=== PATIENT | male | born 1970 | race Caucasian/White ===

== ENCOUNTER 2017-05-28 15:51 | Emergency (ER) | payer OTHER ==
[~2017-05-28] VITALS: Ht 167.6 cm; Wt 73.4 kg
[~2017-05-28 15:51] MED LIST: ACETAMINOPHN-T1 EACH PO; ALBUTEROL SULF8.5 GM IH; AMOX TR-K CLV1 EAC4 PO; BISAC-EVAC10 MG PR; BISACODYL5 MG PO; CHANTIX1 MG PO; CLONAZEPAM1 MG PO; DOCUSATE SODIU100 MG PO; FLEXERIL10 MG PO; KLONOPIN0.5 M1 PO; MAG-AL PLUS SUS30 ML PO; MUCUS RELIEF600 MG PO; PERCOCET 5/31 TABLET PO; PHENERGAN-CODE120 ML PO; PRAVACHOL40 MG PO; PRAVASTATIN SOD40 MG PO; ROBITUSSIN NIG118 ML PO; ROXICODONE5 MG PO; TESSALON PERLE100 MG PO; TRAMADOL HCL50 MG PO; VIAGRA; ZITHROMAX250 MG PO
[2017-05-28 16:46] LABS: BASOPHIL COUNT 0.1 K/uL (0-0.1); EOSINOPHIL (%) 0.6 % (0-5); HEMATOCRIT 43.4 % (38.0-50.0); IMMATURE GRANULOCYTE (%) 0.6 % (0.0-0.7); INSTRUMENT ABS NEUTROPHIL CT 2.8 K/uL; LYMPHOCYTE COUNT 1.9 K/uL (1.0-2.8); MCH 33.8 PG (29.0-34.0); MCHC 35.7 G/DL (30.0-36.0); MCV 94.6 FL (86-99); MEAN PLAT.VOLUME 10.6 uM^3 (9.0-12.4); MONOCYTE (%) 11.4 % (3-12); MONOCYTE COUNT 0.6 K/uL (0-0.8); NEUTROPHIL (%) 50.6 % (45-76); NEUTROPHIL COUNT 2.8 K/uL (1.8-6.4); PLATELET COUNT 124 K/uL (156-360); RBC DIS.WIDTH-CV 12.7 % (11.8-14.6); RBC DIS.WIDTH-SD 44.1 % (39-53); RED BLOOD COUNT 4.59 M/uL (4.00-5.50); WHITE BLOOD COUNT 5.4 K/uL (4.1-10.2)
[2017-05-28 16:56] LABS: CHLORIDE 97 mEq/L (99-109); SODIUM 134 mEq/L (136-147)
[2017-05-28 16:59] LABS: GLUCOSE 80 mg/dL (70-99)
[2017-05-28 17:00] LABS: ANION GAP 18 MEQ/L (2-14); TOTAL BILIRUBIN 1.3 mg/dL (0.0-1.0)
[2017-05-28 17:01] LABS: SERUM ETHYL ALCOHOL 231 mg/dL
[2017-05-28 17:02] LABS: ALKALINE PHOSPHATASE 99 IU/L (3-129); GFR ESTIMATE (CALCULATED) > 59 mL/min/
[2017-05-28 17:03] LABS: UREA NITROGEN (BUN) 5 mg/dL (9-23)
[2017-05-28 17:04] LABS: DIRECT BILIRUBIN 0.7 mg/dL (0.0-0.3)
[2017-05-28 20:04] LABS: AMPHETAMINE NEGATIVE (500 ng/mL); BARBITURATES NEGATIVE (200 ng/mL); BENZODIAZEPINES NEGATIVE (150 ng/mL); COCAINE NEGATIVE (150 ng/mL); INTERNAL CONTROLS VALID? YES; METHADONE NEGATIVE (200 ng/mL); METHAMPHETAMINE NEGATIVE (500 ng/mL); OPIATES (MORPHINE) NEGATIVE (100 ng/mL); OXYCODONE NEGATIVE (100 ng/mL); PHENCYCLIDINE NEGATIVE (25 ng/mL); PROPOXYPHENE NEGATIVE (300 ng/mL); THC CANNABINOIDS NEGATIVE (50 ng/mL); TRICYCLIC ANTIDEPRESSANTS NEGATIVE (300 ng/mL)
[2017-05-28 22:25] VITALS: BP 155/81
== END 2017-05-28 22:55 | disposition home or self-care (01) ==
LOC: EME 15:51
PROVIDERS: Emergency Medicine
DX: F19.94 Other psychoactive substance use, unspecified with psychoactive substance-induced mood disorder (principal); F32.9 Major depressive disorder, single episode, unspecified; I10 Essential (primary) hypertension; E78.5 Hyperlipidemia, unspecified; I25.2 Old myocardial infarction; F17.200 Nicotine dependence, unspecified, uncomplicated
CPT/HCPCS: 80048; 80076; 85025; 90837; 99281; 99285; G0480

== ENCOUNTER 2017-07-14 10:22 | Day surgery (SDC) | payer OTHER ==
[~2017-07-14] VITALS: Ht 170.2 cm; Wt 76.2 kg
[~2017-07-14 10:22] MED LIST changes: +BUSPIRONE HCL5 MG PO; +CHLORDIAZEPOXID25 MG PO; +CITALOPRAM HBR40 MG PO; +GABAPENTIN100 MG PO; +METOPROLOL SUCC25 MG PO
== END 2017-07-14 11:45 | disposition home or self-care (01) ==
LOC: PAIN 10:22 → SDC 11:00 → PAIN 11:45
DX: M47.26 Other spondylosis with radiculopathy, lumbar region (principal); M51.16 Intervertebral disc disorders with radiculopathy, lumbar region; F41.8 Other specified anxiety disorders; I10 Essential (primary) hypertension; I25.10 Atherosclerotic heart disease of native coronary artery without angina pectoris; E78.5 Hyperlipidemia, unspecified; M48.061 Spinal stenosis, lumbar region without neurogenic claudication; Z79.82 Long term (current) use of aspirin; Z79.891 Long term (current) use of opiate analgesic; F17.200 Nicotine dependence, unspecified, uncomplicated; I25.2 Old myocardial infarction
CPT/HCPCS: J1030; J2250; J3010; S0020

== ENCOUNTER 2017-07-21 11:11 | Day surgery (SDC) | payer OTHER ==
[~2017-07-21] VITALS: Ht 170.2 cm; Wt 76.2 kg
== END 2017-07-21 12:28 | disposition home or self-care (01) ==
LOC: PAIN 11:11 → SDC 11:45 → PAIN 11:45
DX: M47.26 Other spondylosis with radiculopathy, lumbar region (principal); M51.16 Intervertebral disc disorders with radiculopathy, lumbar region; M48.061 Spinal stenosis, lumbar region without neurogenic claudication; I10 Essential (primary) hypertension; E78.5 Hyperlipidemia, unspecified; I25.2 Old myocardial infarction; F41.8 Other specified anxiety disorders; Z79.891 Long term (current) use of opiate analgesic; Z79.82 Long term (current) use of aspirin; F17.210 Nicotine dependence, cigarettes, uncomplicated
CPT/HCPCS: J1030; J2250; J3010; S0020

== ENCOUNTER 2017-08-27 13:24 | Day surgery (SDC) | payer OTHER ==
[~2017-08-27] VITALS: Ht 170.2 cm; Wt 76.2 kg
[~2017-08-27 13:24] MED LIST changes: +BUSPAR15 MG PO; -BUSPIRONE HCL5 MG PO; +CYMBALTA60 MG PO; +FOLIC ACID1 MG PO; -GABAPENTIN100 MG PO; +LIBRIUM10 MG PO; +NEURONTIN300 MG PO
[2017-09-01] MEDS ORDERED: NALTREXONE HCL50 MG PO (15:54)
[2017-09-01] MEDS ORDERED: MOTRIN400 MG PO (15:56)
== END 2017-08-27 14:50 | disposition home or self-care (01) ==
LOC: PAIN 13:24 → SDC 14:00 → PAIN 14:00
DX: M47.26 Other spondylosis with radiculopathy, lumbar region (principal); M51.16 Intervertebral disc disorders with radiculopathy, lumbar region; M48.061 Spinal stenosis, lumbar region without neurogenic claudication; I10 Essential (primary) hypertension; I25.10 Atherosclerotic heart disease of native coronary artery without angina pectoris; F41.8 Other specified anxiety disorders; Z79.82 Long term (current) use of aspirin; Z79.891 Long term (current) use of opiate analgesic; Z72.89 Other problems related to lifestyle; F17.200 Nicotine dependence, unspecified, uncomplicated
CPT/HCPCS: J1030; J2250; J3010; S0020

== ENCOUNTER 2017-09-08 13:30 | Day surgery (SDC) | payer OTHER ==
[~2017-09-08] VITALS: Ht 167.6 cm; Wt 77.1 kg
[~2017-09-08 13:30] MED LIST changes: +MOTRIN400 MG PO; +NALTREXONE HCL50 MG PO
== END 2017-09-08 15:00 | disposition home or self-care (01) ==
LOC: PAIN 13:30 → SDC 14:00 → PAIN 15:00
DX: M47.26 Other spondylosis with radiculopathy, lumbar region (principal); M51.16 Intervertebral disc disorders with radiculopathy, lumbar region; M48.061 Spinal stenosis, lumbar region without neurogenic claudication; I10 Essential (primary) hypertension; E78.5 Hyperlipidemia, unspecified; F41.8 Other specified anxiety disorders; F10.21 Alcohol dependence, in remission; F17.200 Nicotine dependence, unspecified, uncomplicated; I25.2 Old myocardial infarction; Z95.2 Presence of prosthetic heart valve; Z79.82 Long term (current) use of aspirin; Z79.891 Long term (current) use of opiate analgesic
CPT/HCPCS: J1030; J1885; J2250; J3010; S0020